=== PATIENT | male | born 1935 | race Caucasian/White ===

== ENCOUNTER 2021-04-27 12:23 | Emergency (ER) | payer OTHER ==
--- OUTSIDE RECORDS SUMMARY | 2021-04-27 12:32 | XMS REPORT | Continuity of Care Document ---
:1935 Author Organization [facility] t Address [address] [place] [address] Care Team Providers Name Role Phone Concetta BERRY L Attending Clinician Doctor Unassigned, Name Attending Clinician Unavailable Problems This patient has no known problems. Allergies, Adverse Reactions, Alerts This patient has no known allergies or adverse reactions. Medications This patient has no known medications. Procedures This patient has no known procedures. Encounters Start End Encounter Admission Attending Care Care Encounter Source Date/Time Date/Time Type Type Clinicians Facility Department ID 2020-09-20 2020-09-20 Office ANGIE Hylton [id number] 15:08:46 15:35:53 Visit [facility] [id number] Surgical [id number] Special [id number] [place] 2020-09-20 2020-09-20 Orders Doctor LINDA [id number] 00:00:00 00:00:00 Only UnassignedSAMANTHA [id number] [place] [facility] [id number] Results This patient has no known results.
[2021-04-27] MEDS ORDERED: LIDOCAINE 1% MPF 30 ML VIAL ONE (13:41)
--- NOTE | 2021-04-27 13:53 | ER ---
Nurse's Notes [facility] Name: Gilbert Maier Age: 86 yrs Sex: Male : 1935 Arrival Date: 04/27/2021 Time: 12:26 Bed 6 Private MD: Diagnosis: Laceration without foreign body of right forearm Presentation: 04/27 12:35 Chief complaint: Patient states: I was walking into the [employer] [place] when I slipped and vg1 fell and my jar of coins busted and cut my arm. Pt denies hitting head. States takes Aspirin 81 mg. Coronavirus screen: Client denies travel out of the [place] in the last 14 days. Ebola Screen: Patient negative for fever greater than or equal to 101.5 degrees Fahrenheit, and additional compatible Ebola Virus Disease symptoms. Initial Sepsis Screen: Does the patient meet any 2 criteria? No. Patient's initial sepsis screen is negative. Does the patient have a suspected source of infection? No. Patient's initial sepsis screen is negative. Risk Assessment: Do you want to hurt yourself or someone else? Patient reports no desire to harm self or others. Onset of symptoms was April 27, 2021. 12:35 Method Of Arrival: Ambulatory vg1 12:35 Acuity: GABBY 3 vg1 14:08 Complicating Factors: There are no complicating factors for this patient. tw2 Triage Assessment: 12:37 General: Appears in no apparent distress. comfortable, Behavior is calm, cooperative. vg1 Pain: Denies pain. Injury Description: Laceration sustained to right hand and palmar aspect of right forearm is jagged, bleeding moderately. Historical: - Allergies: 12:37 No Known Allergies; vg1 - Home Meds: 12:37 aspirin 81 mg Oral cpDR [Active]; gabapentin oral [Active]; vg1 - PMHx: 12:37 Neuropathy; vg1 - Immunization history:: Adult Immunizations up to date, Received the [employer]. - Social history:: Smoking status: Patient denies any tobacco usage or history of. Screenin:35 Abuse screen: Denies threats or abuse. Nutritional screening: No deficits noted. tw2 Tuberculosis screening: No symptoms or risk factors identified. Fall Risk None identified. Assessment: 12:35 General: Appears in no apparent distress. well groomed, Behavior is calm, cooperative, tw2 appropriate for age. Pain: Complains of pain in right arm and palmar aspect of right forearm and right hand. Neuro: Level of Consciousness is awake, alert, obeys commands, Oriented to person, place, time, situation. Cardiovascular: Patient's skin is warm and dry. Respiratory: Airway is patent Respiratory effort is even, unlabored, Respiratory pattern is regular, symmetrical. GI: No signs and/or symptoms were reported involving the gastrointestinal system. : No signs and/or symptoms were reported regarding the genitourinary system. Derm: No signs and/or symptoms reported regarding the dermatologic system. Musculoskeletal: Circulation, motion, and sensation intact. Range of motion: intact in all extremities. Injury Description: Laceration sustained to right arm is jagged, 2.6 to 7.5 cm long. 14:07 Reassessment: Patient appears in no apparent distress at this time. No changes from tw2 previously documented assessment. Patient and/or family updated on plan of care and expected duration. Pain level reassessed. Vital Signs: 12:35 BP 128 / 92; Pulse 100; Resp 16; Temp 98.0; Pulse Ox 97% ; Weight 106.59 kg; Height 5 vg1 ft. 10 in. (177.80 cm); Pain 0/10; 12:35 Body Mass Index 33.72 (106.59 kg, 177.80 cm) vg1 ED Course: 12:26 Patient arrived in ED. bp1 12:35 Nurys Garcia, RN is Primary Nurse. tw2 12:37 Triage completed. vg1 12:37 Arm band placed on. vg1 12:39 Patient has correct armband on for positive identification. Bed in low position. Call vg1 light in reach. Side rails up X 1. Adult w/ patient. 12:51 Yehuda Mtz PA is PHCP. jr8 12:51 Gilmer Lowery MD is Attending Physician. jr8 14:08 Assist provider with laceration repair on palmar aspect of right forearm that was tw2 between 2.6 to 7.5 cm using sutures. Set up tray. Performed by Yehuda RIVERA Dressed with 4X4s, Kerlix, Patient tolerated well. 14:16 Patient did not have IV access during this emergency room visit. tw2 Administered Medications: 13:25 Drug: Lidocaine (1 %) 5 mg Route: Infiltration; tw2 14:06 Drug: Tetanus-Diphtheria Toxoid Adult 0.5 ml {Technical Staff Assistant: [employer]. Exp: 12/22/2022. Lot #: [id number]. } Route: IM; Site: right deltoid; 14:16 Follow up: Response: No adverse reaction tw2 Outcome: 13:52 Discharge ordered by MD. shields 14:15 Discharged to home ambulatory, with significant other. tw2 14:15 Condition: stable 14:15 Discharge instructions given to patient, significant other, Instructed on discharge instructions, follow up and referral plans. medication usage, wound care, Demonstrated understanding of instructions, follow-up care, medications, wound care, Prescriptions given X 1. 14:16 Patient left the ED. tw2 Signatures: Yehuda Mtz PA PA jr8 Nurys Garcia RN RN tw2 Dhara Mejía RN RN vg1 Jeannine Anderson [facility]
--- NOTE | 2021-04-27 13:53 | EDPHYS ---
Physician Documentation [facility] Name: Gilbert Maier Age: 86 yrs Sex: Male : 1935 Arrival Date: 04/27/2021 Time: 12:26 Bed 6 Private MD: ED Physician Gilmer Lowery HPI: 04/27 13:59 This 86 yrs old Male presents to ER via Ambulatory with complaints of jr8 Laceration To Arm. 13:59 Onset: The symptoms/episode began/occurred acutely, today. Associated signs and jr8 symptoms: The patient has no apparent associated signs or symptoms. The patient has not experienced similar symptoms in the past. The patient has not recently seen a physician. Patient was carrying coin jar and broke causing laceration to top and bottom of right arm . Historical: - Allergies: 12:37 No Known Allergies; vg1 - Home Meds: 12:37 aspirin 81 mg Oral cpDR [Active]; gabapentin oral [Active]; vg1 - PMHx: 12:37 Neuropathy; vg1 - Immunization history:: Adult Immunizations up to date, Received the [employer]. - Social history:: Smoking status: Patient denies any tobacco usage or history of. ROS: 14:01 Constitutional: Negative for fever, chills, and weight loss, Neuro: Negative for jr8 headache, weakness, numbness, tingling, and seizure. 14:01 MS/extremity: Positive for laceration, of the right arm. 14:01 Skin: Positive for laceration(s). 14:01 All other systems are negative. Exam: 14:01 Constitutional: This is a well developed, well nourished patient who is awake, alert, jr8 and in no acute distress. Cardiovascular: Regular rate and rhythm with a normal S1 and S2. No gallops, murmurs, or rubs. Normal PMI, no JVD. No pulse deficits. Respiratory: Lungs have equal breath sounds bilaterally, clear to auscultation and percussion. No rales, rhonchi or wheezes noted. No increased work of breathing, no retractions or nasal flaring. Skin: Warm, dry with normal turgor. Normal color with no rashes, no lesions, and no evidence of cellulitis. Neuro: Awake and alert, GCS 15, oriented to person, place, time, and situation. Cranial nerves II-XII grossly intact. Motor strength 5/5 in all extremities. Sensory grossly intact. Cerebellar exam normal. Normal gait. 14:01 Musculoskeletal/extremity: Extremities: grossly normal except: noted in the right arm: Patient has laceration to dorsal and palmar forearm without active bleeding, ROM: intact in all extremities, Circulation is intact in all extremities. Sensation intact. Vital Signs: 12:35 BP 128 / 92; Pulse 100; Resp 16; Temp 98.0; Pulse Ox 97% ; Weight 106.59 kg; Height 5 vg1 ft. 10 in. (177.80 cm); Pain 0/10; 12:35 Body Mass Index 33.72 (106.59 kg, 177.80 cm) vg1 Laceration: 13:50 Wound Repair of 3.5cm ( 1.4in ) subcutaneous laceration to palmar aspect of right jr8 forearm. Irregularly shaped.. Skin/tissue flap noted.. Distal neuro/vascular/tendon intact. Anesthesia: Local anesthetic administered with 2 mls of 1% lidocaine. Wound prep: Extensive cleansing with betadine, Wound irrigation with saline, Wound explored extensively. Skin closed with 2 4-0 Prolene using interrupted sutures and sterile technique. Patient tolerated well. 13:50 Wound Repair of 6cm ( 2.4in ) subcutaneous laceration to right wrist region. Linear jr8 shaped.. Distal neuro/vascular/tendon intact. Anesthesia: Local anesthetic administered with 4 mls of 1% lidocaine. Wound prep: Extensive cleansing with betadine, Wound irrigation with saline, Wound explored extensively. Skin closed with 4 4-0 Prolene using interrupted sutures and sterile technique. Patient tolerated well. MDM: 12:51 Patient medically screened. jr8 13:50 Data reviewed: vital signs, nurses notes, and as a result, I will discharge patient. jr8 Data interpreted: Pulse oximetry: on room air is 97 %. Interpretation: normal. Counseling: I had a detailed discussion with the patient and/or guardian regarding: the historical points, exam findings, and any diagnostic results supporting the discharge/admit diagnosis, the need for outpatient follow up, a family practitioner, to return to the emergency department if symptoms worsen or persist or if there are any questions or concerns that arise at home. 04/27 13:20 Order name: Suture Tray Setup; Complete Time: 13:20 tw2 04/27 13:21 Order name: Wound Care; Complete Time: 14:07 tw2 Administered Medications: 13:25 Drug: Lidocaine (1 %) 5 mg Route: Infiltration; tw 14:06 Drug: Tetanus-Diphtheria Toxoid Adult 0.5 ml {Esthetician/Skin Therapist: [employer]. Exp: 12/22/2022. Lot #: [id number]. } Route: IM; Site: right deltoid; 14:16 Follow up: Response: No adverse reaction tw Disposition: 16:32 Co-signature as Attending Physician, Gilmer Lowery MD I agree with the assessment and kdr plan of care. Disposition Summary: 04/27/21 13:52 Discharge Ordered Location: Home [facility] Problem: new jr8 Symptoms: have improved jr8 Condition: Stable jr8 Diagnosis - Laceration without foreign body of right forearm jr8 Followup: jr8 - With: Private Physician - When: 7 - 10 days - Reason: Wound Recheck, Recheck today's complaints, Continuance of care, Staple/Suture removal, Re-evaluation by your physician Discharge Instructions: - Discharge Summary Sheet jr8 - Laceration Care, Adult jr8 Forms: - Medication Reconciliation Form jr8 - Thank You Letter jr8 - Antibiotic Education jr8 - Prescription Opioid Use jr8 Prescriptions: - cephalexin 500 mg Oral capsule - take 1 capsule by ORAL route every 8 hours for 7 days; 21 capsule; Refills: 0, jr8 Product Selection Permitted Signatures: Gilmer Lowery MD MD [facility] Yehuda Mtz PA PA jr8 Nurys Garcia RN RN tw2 Dhara Mejía RN RN vg1
[2021-04-27] MEDS ORDERED: TETANUS & DIPHTHERIA TOX,ADULT 0.5 ML VIAL ONE (14:16)
[2021-04-27 14:24] VITALS: BP 128/92; TEMP 98; O2SAT 97
== END 2021-04-27 14:16 | disposition home or self-care (01) ==
LOC: ER 12:23
PROC: 0JQG0ZZ Repair Right Lower Arm Subcutaneous Tissue and Fascia, Open Approach (ICD-10-PCS; principal; 2021-04-27)
DX: S51.811A Laceration without foreign body of right forearm, initial encounter (principal); W25.XXXA Contact with sharp glass, initial encounter; Z23 Encounter for immunization; Z79.82 Long term (current) use of aspirin
CPT/HCPCS: 90471; 90714; 99283